=== PATIENT | female | born 1975 | race Caucasian/White ===

== ENCOUNTER → 2017-05-04 | Outpatient (CLI) | payer BC ==
[~2017-05-04] MED LIST: IOHEXOL 300 MG/ML 75 ML VIAL. IV ONE
[2017-05-04 14:30] LABS: BASO # 0.1 x10^3/uL (0.0-0.2); BASO % 1 % (0-3); EOS # 0.1 x10^3/uL (0.0-0.7); EOS % 1 % (0-3); HEMATOCRIT 42.5 % (36.0-47.0); HEMOGLOBIN 14.7 g/dL (12.0-15.5); LYMPH # 1.3 x10^3/uL (1.0-4.8); LYMPH % 15 % (24-48); MEAN CORPUSCULAR HEMOGLOBIN 35 pg (25-35); MEAN CORPUSCULAR HGB CONC 35 g/dL (31-37); MEAN CORPUSCULAR VOLUME 101 fL (79-100); MONO % 11 % (0-9); NEUT # 6.3 x10^3uL (1.8-7.7); NEUT % 73 % (31-73); PLATELET COUNT 220 x10^3/uL (140-400); RED BLOOD COUNT 4.23 x10^6/uL (3.50-5.40); RED CELL DISTRIBUTION WIDTH 12.6 % (11.5-14.5); WHITE BLOOD COUNT 8.7 x10^3/uL (4.0-11.0)
[2017-05-04 14:39] LABS: ALBUMIN 3.7 g/dL (3.4-5.0); CALCIUM 9.3 mg/dL (8.5-10.1); CREATININE 0.7 mg/dL (0.6-1.0); GFR 90.9; POTASSIUM 4.3 mmol/L (3.5-5.1); TOTAL BILIRUBIN 0.5 mg/dL (0.2-1.0); TOTAL PROTEIN 7.4 g/dL (6.4-8.2)
--- NOTE | 2017-05-04 14:54 | RAD ---
CT abdomen and pelvis with and without contrast Indication: llq pain for 1 week, hematuria. . Technique: Intravenous contrast is given. No oral contrast as per request. Comparison:None available Exposure: One or more of the following individualized dose reduction techniques were utilized for this examination: 1. Automated exposure control 2. Adjustment of the mA and/or kV according to patient size 3. Use of iterative reconstruction technique. FINDINGS: Lower thorax: Lung bases are clear. Pneumoperitoneum:No gross pneumoperitoneum. Liver: Unremarkable Spleen: Unremarkable Pancreas: Unremarkable Adrenals:No evidence of mass. Kidneys: Tiny hypodense lesion at the posterior upper pole of the left kidney measures 5 mm. 2 small to characterize but would typically represent a cyst. No evidence of urolithiasis or obstruction. Gallbladder: No calcified stone Aorta: Abdominal aorta is nonaneurysmal Lymph nodes: No significant enlargement GI tract: No evidence of bowel obstruction. No evidence of acute colitis. Appendix: Partially visualized, appears unremarkable. Ascites: Very mild free pelvic fluid in the cul-de-sac Urinary bladder: Not opacified, but no apparent abnormality. There are prominent vascular structures in the pelvis bilaterally. This could represent pelvic congestion. Small left ovarian lesion identified likely a collapsing cyst with an irregular enhancing wall measuring about 15 mm. Bones: No destructive process. IMPRESSION: 1. Trace free pelvic fluid. There is a small collapsing left ovarian cyst. 2. Prominent vessels in the pelvis bilaterally could indicate congestion syndrome. 3. No other acute findings. Electronically signed by: Vel Ackerman MD (05/04/2017 2:50 PM) [id number]
== END | disposition home or self-care (01) ==
LOC: CT 13:49
PROVIDERS: ATTEND Family Medicine
DX: N83.292 Other ovarian cyst, left side (principal)
CPT/HCPCS: 36415; 74178; 80053; 85025; Q9967

== ENCOUNTER → 2017-06-02 | Outpatient (CLI) | payer BC ==
--- NOTE | 2017-06-02 13:43 | RAD ---
5 views of the lumbar spine 06/02/2017 Indication: Low back and flank pain Comparison study: None Discussion: No evidence of acute fracture or alignment abnormality is identified. Vertebral body heights and disc spaces are preserved. No evidence of spondylolysis or spondylolisthesis is seen. No acute soft tissue changes are identified. Impression: No radiographic evidence of acute fracture or alignment abnormality of the lumbar spine
--- NOTE | 2017-06-02 14:14 | RAD ---
KUB, 06/02/2017: History: Low back and flank pain There is gas and stool in the colon a nonspecific pattern. No organomegaly is seen. Lower pelvic calcifications are probably phleboliths. IMPRESSION: No acute abdominal abnormality is detected.
== END | disposition home or self-care (01) ==
LOC: RAD 12:24
PROVIDERS: ATTEND Family Medicine
DX: M54.5 Low back pain (principal); R10.84 Generalized abdominal pain
CPT/HCPCS: 72110; 74018

== ENCOUNTER → 2021-07-08 | Outpatient (CLI) | payer BC ==
[2021-07-08 10:04] LABS: ALBUMIN 3.8 g/dL (3.4-5.0); ALBUMIN/GLOBULIN RATIO 1.2 (1.0-1.7); CALCIUM 9.2 mg/dL (8.5-10.1); CREATININE 0.8 mg/dL (0.6-1.0); GFR 76.6; POTASSIUM 4.4 mmol/L (3.5-5.1); TOTAL BILIRUBIN 0.7 mg/dL (0.2-1.0)
[2021-07-08 10:18] LABS: CLARITY,URINE CLOUDY; COLOR,URINE YELLOW; GLUCOSE,URINE NEG (NEG); NITRITE,URINE NEG (NEG)
[2021-07-08 10:19] LABS: BACTERIA,URINE 0 /HPF (0-FEW); SQUAMOUS EPITHELIAL CELL,UR MANY /LPF
[2021-07-08 18:31] LABS: CHOLESTEROL/HDL RATIO 2.5
== END ==
LOC: LAB 07:59
PROVIDERS: ATTEND Family Medicine
DX: Z13.220 Encounter for screening for lipoid disorders (principal); R10.9 Unspecified abdominal pain
CPT/HCPCS: 36415; 80053; 80061; 81001

== ENCOUNTER → 2021-07-14 | Outpatient (CLI) | payer BC ==
[~2021-07-14] MED LIST changes: +IOHEXOL 240 MG/ML 50ML VIAL. ONE; +IOHEXOL 240 MG/ML 50ML VIAL. PO ONE; -IOHEXOL 300 MG/ML 75 ML VIAL. IV ONE
[2021-07-14] MEDS: IOHEXOL 300 MG/ML 75 ML VIAL. IV ONE (07:58)
--- NOTE | 2021-07-14 10:47 | RAD ---
EXAM: CT ABDOMEN/PELVIS WITH CONTRAST. HISTORY: Left lower quadrant pain. TECHNIQUE: Computed tomography of the abdomen and pelvis was performed after the intravenous administ ration of iodinated contrast. One or more of the following individualized dose reduction techniques w ere utilized for this examination: 1. Automated exposure control. 2. Adjustment of the mA and/or kV according to patient size. 3. Use of iterative reconstruction technique. COMPARISON: 05/04/2017. FINDINGS: Lung windows through the visualized portions of the bases reveal no abnormality. Bone windo ws reveal no suspicious lesions. A rim-enhancing follicle in the left ovary measures 2.4 x 1.9 cm and is likely physiologic. There is a small amount of simple appearing free pelvic fluid. The appendix is not inflamed. There is no small bowel obstruction. The liver, gallbladder, pancreas, adrenal glands and spleen are unremarkable. A subcentimeter cyst in the left kidney appears benign. IMPRESSION: 1. 2.4 cm dominant left ovarian follicle, likely physiologic. Correlate for this as a cause of sympto ms. Electronically signed by: Satish Guillen MD (07/14/2021 10:44 AM) [id number]
== END ==
LOC: CT 07:38
PROVIDERS: ATTEND Family Medicine
DX: N83.02 Follicular cyst of left ovary (principal)
CPT/HCPCS: 74177; Q9967